=== PATIENT | female | born 1965 | race American Indian/Alaskan Native ===

== ENCOUNTER 2016-10-21 10:02 | Outpatient (CLI) | payer BC ==
--- NOTE | 2016-10-21 11:46 | Fluoroscopy Report ---
FLUOROSCOPY UPPER GI WITH AIR AND KUB: INDICATION: Hiatal hernia with GERD. History of gastric bypass. COMPARISON: None similar. FINDINGS: Upper GI performed. Patient swallowed thick and thin barium without any difficulty. Effervescent granules not given due to patient reluctancy. Senior [employer] view demonstrates cholecystectomy and gastric surgery related surgical densities. Right hemidiaphragm mildly elevated. Few spinal degenerative changes. Esophagus is normal in course and caliber without definite mucosal abnormality, to the extent assessed. Prompt contrast passage into the residual stomach and further on into the anastomosed small bowel noted. No leak. Small hiatal hernia and mild gastroesophageal reflux. CONCLUSION: Small hiatal hernia and mild gastroesophageal reflux in this patient with prior gastric bypass and cholecystectomy, as described. Please correlate. Thank you for the opportunity to participate in this patient's care.
== END 2016-10-21 10:03 | disposition home or self-care (01) ==
LOC: FLUORO 10:02
PROVIDERS: ATTEND Internal Medicine
DX: K44.9 Diaphragmatic hernia without obstruction or gangrene (principal); Q79.1 Other congenital malformations of diaphragm; M47.899 Other spondylosis, site unspecified; Z90.49 Acquired absence of other specified parts of digestive tract; Z98.890 Other specified postprocedural states
CPT/HCPCS: 74247

== ENCOUNTER 2018-04-06 07:36 | Outpatient (CLI) | payer OTHER ==
--- NOTE | 2018-04-06 13:01 | Mammography Report ---
BILATERAL DIGITAL AUGMENTED SCREENING MAMMOGRAM with CAD: 04/06/18 07:36:00 CLINICAL: Routine screening. COMPARISON:08/02/16 FINDINGS: Screening views with and without implant displacement demonstrate almost entirely fatty breasts. No mass, architectural distortion or suspicious calcifications. Intact subpectoral implants. IMPRESSION: No mammographic evidence of malignancy. BI-RADS CATEGORY: 2 -- Benign RECOMMENDATION: Routine mammographic screening in one year. ACR BI-RADS MAMMOGRAPHIC CODES: 0 = Needs additional imaging evaluation; 1 = Negative; 2 = Benign; 3 = Probably benign; 4 = Suspicious; 5 = Malignant; 6 = Known biopsy-proven malignancy COMMENT: 1. Dense breast tissue, i.e., adenosis, fibrocystic changes, etc., may obscure an underlying neoplasm. 2. Approximately 10% of cancers are not detected with mammography. 3. A negative mammography report should not delay biopsy if a clinically suspicious mass is present. COMMENT: Patient follow-up letters are generated via our [employer] application.
== END 2018-04-06 07:37 | disposition home or self-care (01) ==
LOC: MAMMO 07:36 → EEVIPCON 07:36 → MAMMO 07:37
PROVIDERS: ATTEND Internal Medicine
DX: Z12.31 Encounter for screening mammogram for malignant neoplasm of breast (principal); K21.9 Gastro-esophageal reflux disease without esophagitis; M19.90 Unspecified osteoarthritis, unspecified site; F41.9 Anxiety disorder, unspecified; Z90.710 Acquired absence of both cervix and uterus; Z90.49 Acquired absence of other specified parts of digestive tract
CPT/HCPCS: 77067